=== PATIENT | female | born 1995 | race Caucasian/White ===

== ENCOUNTER 2018-06-20 12:31 | Emergency (ER) | payer MEDICAID ==
[2018-06-20] MEDS ORDERED: AMOXICILLIN 250 MG CAPSULE PO STA (13:32)
[2018-06-20] MEDS ORDERED: NAPROXEN 250 MG TABLET PO STA (13:33)
--- NOTE | 2018-06-20 13:36 | ED Physician Documentation ---
PD HPI HEENT - Stated complaint Stated Complaint: TOOTH PX - Chief complaint Chief Complaint: Heent - History obtained from History obtained from: Patient - History of Present Illness Timing - onset: Other Timing - details: Gradual onset Severity Comments: Moderate Location: Tooth Improves: Nothing Worsens: Temperatures, Everything Associated symptoms: No: Fever, Congestion, Rhinorrhea, Trismus, Unable to swallow, Swollen nodes, Facial swelling, Headache, Cough Similar symptoms before: No diagnosis Recently seen: Not recently seen Review of Systems Constitutional: denies: Fever, Chills Eyes: denies: Discharge Ears: denies: Ear pain Nose: denies: Congestion Throat: reports: Dental pain / toothache. denies: Oral lesions / sores, Sore throat Cardiac: denies: Chest pain / pressure Neurologic: denies: Headache Immunocompromised: denies: Chemotherapy PD PAST MEDICAL HISTORY - Past Medical History Past Medical History: No - Past Surgical History Past Surgical History: No - Present Medications Home Medications: Ambulatory Orders Medication Instructions Recorded Confirmed Amoxicillin 875 mg PO BID #20 tablet 06/20/18 Naproxen 500 mg PO BID PRN #60 tablet 06/20/18 - Allergies Allergies/Adverse Reactions: Allergies Allergy/AdvReac Type Severity Reaction Status Date / Time No Known Drug Allergies Allergy Verified 06/20/18 12:41 - Social History Does the pt smoke?: No Smoking Status: Never smoker Does the pt drink ETOH?: No Does the pt have substance abuse?: No - Immunizations Immunizations are current?: Yes - POLST Patient has POLST: No PD ED PE NORMAL - General General: Alert and oriented X 3, No acute distress - HEENT HEENT: Atraumatic, PERRL, EOMI, Ears normal - Cardiac Cardiac: RRR - Respiratory Respiratory: No respiratory distress - Neuro Neuro: Alert and oriented X 3, Normal speech - Psych Psych: Normal affect PD ED PE EXPANDED - HEENT HEENT: Moist mucous membranes, Pharynx normal, Dental decay, Dental TTP, Other (The patient has dental decay of the right upper posterior teeth, there is no gingival inflammation, there is tenderness to palpation, there is no facial swelling or erythematous changes. The patient has no evidence of a drainable abscess, the Tongue is within normal limits, the floor the mouth is soft and moist). No: Pharyngeal erythema, Swollen tonsils, Tonsillar exudate, Soft palate petecchiae, Dental abscess, Dry socket, Oral lesions / sores, Lip laceration, Tongue laceration Results - Vitals Vitals: Vital Signs - 24 hr 06/20/18 12:38 Temperature 36.6 C Heart Rate 64 Respiratory 16 Rate Blood Pressure 126/66 O2 Saturation 97 Oxygen O2 Source Room air PD MEDICAL DECISION MAKING - ED course ED course: The patient will be placed on a course of an antibiotic for the dental decay, I urged the patient follow-up with dental for ongoing management. The patient appears appropriate for discharge and ongoing outpatient management. I advised returning for any worsening or any concerns. Departure - Departure Disposition: Home, Self Care Clinical Impression: Pain, dental, Pain due to dental caries Condition: Good Instructions: ED Tooth Pain Prescriptions: Amoxicillin 875 mg PO BID #20 tablet Naproxen 500 mg PO BID PRN #60 tablet PRN Reason: Pain Comments: Please follow-up with your dentist as soon as possible Please return for any worsening or any concerns
[2018-06-20 13:53] VITALS: BP 124/68
== END 2018-06-20 13:52 | disposition home or self-care (01) ==
LOC: ED 12:31
DX: K08.89 Other specified disorders of teeth and supporting structures (principal); K02.9 Dental caries, unspecified
CPT/HCPCS: 99283; A9270

== ENCOUNTER 2019-12-21 10:23 | Outpatient (CLI) | payer MEDICAID | END 2019-12-21 10:24 | disposition EMS.NT | LOC: EMS 10:23 | PROVIDERS: ATTEND Surgery | DX: Z03.89 Encounter for observation for other suspected diseases and conditions ruled out (principal) ==